=== PATIENT | male | born 1965 | race Caucasian/White ===

== ENCOUNTER 2023-05-06 13:22 | Outpatient (CLI) | payer OTHER, SELFPAY ==
[2023-05-06 15:35] LABS: Absolute Basophil Count 0.04 10^3/uL (0.0-0.2); Absolute Eosinophil Count 0.09 10^3/uL (0.0-0.7); Absolute Monocyte Count 0.38 10^3/uL (0.1-0.8); Basophils % 0.8; Eosinophils % 1.9; HCT 38.7 % (40.0-50.0); HGB 13.3 g/dL (13.5-17.5); Lymphocytes % 46.7; MCHC 34.4 % (32.0-36.0); MCV 93 fL (80-95); MPV 9.3 fL (8.0-11.0); Monocytes % 8.1; Neutrophils % 42.5; Platelet Count 239 10^3/uL (130-400); RBC 4.15 10^6/uL (4.36-5.78); RDW-SD 41.2 fL; WBC 4.71 10^3/uL (4.4-10.8)
[2023-05-06 16:27] LABS: Hemoglobin A1C 5.8 % (<5.7)
[2023-05-06 16:33] LABS: ALT 32 U/L (16-63); AST 21 U/L (15-37); Albumin 3.8 g/dL (3.4-5.0); Alkaline Phosphatase 47 U/L (46-116); Anion Gap 8.7 mmol/L (3-11); BUN 27 mg/dL (7-18); Bilirubin, Total 0.3 mg/dL (0.2-1.0); CO2 27.3 mmol/L (21.0-32.0); Calcium 9.5 mg/dL (8.5-10.1); Chloride 103 mmol/L (98-107); Estimated GFR 87.24 (mL/min/1.73m2); Glucose 99 mg/dL (74-106); Potassium 4.2 mmol/L (3.5-5.1); Sodium 139 mmol/L (136-145)
[2023-05-08 12:44] LABS: TB Interpretation Negative (Negative); TB1 Ag minus Nil 0.01 IU/ml; TB2 Ag minus Nil 0.01 IU/mL
[2023-05-11 11:11] LABS: HIV 1 RNA Qualitative Undetected copies/mL (Undetected)
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
== END 2023-05-06 13:23 | disposition home or self-care (01) ==
PROVIDERS: Visit Provider Nurse Practitioner Family
DX: B20 Human immunodeficiency virus [HIV] disease (principal); Z79.899 Other long term (current) drug therapy
CPT/HCPCS: 36415; 80053; 87536; 99204; 83036; 85025; 86480